=== PATIENT | male | born 1960 | race Caucasian/White ===

== ENCOUNTER 2020-05-10 09:45 | Outpatient (CLI) | payer MEDICARE, SELFPAY ==
--- NOTE | ~2020-05-10 | XR_ITS ---
XR chest 2V 05/10/2020 10:30 Indication: Dyspnea, shortness of breath and cough Procedure: PA and lateral views of the chest Comparison: 05/28/2012 Findings: Heart size normal. There is chronic left basilar atelectasis/scarring. There is a coronary artery stent. Right lung clear. No pleural effusion, edema or pneumothorax. Impression: 1: Chronic left basilar atelectasis/scarring. Reviewed, dictated and finalized at location A. Impression: 1: Chronic left basilar atelectasis/scarring.
== END 2020-05-10 09:46 | disposition home or self-care (01) ==
PROVIDERS: PCP Family Medicine; Visit Provider Family Medicine
DX: R06.00 Dyspnea, unspecified (principal)
CPT/HCPCS: 71046

== ENCOUNTER 2020-05-22 16:01 | Emergency (ER) | payer MEDICARE, SELFPAY ==
--- NOTE | ~2020-05-22 | XR_ITS ---
EXAMINATION: XR chest 2V DATE: 05/22/2020 16:48 INDICATION: Cough and fever TECHNIQUE: frontal and lateral views of the chest were obtained. COMPARISON: Chest radiograph dated 05/10/2020 and 08/31/2019 FINDINGS: Linear opacities in the lingula, right middle lobe and in one of the lower lobes on the lateral proje ction consistent with discoid atelectasis. No other airspace opacities, pulmonary edema, pleural effu milli or pneumothorax. The cardiomediastinal silhouette is normal. There are bridging osteophytes at m ultiple levels in the spine, consistent with diffuse idiopathic skeletal hyperostosis (DISH). Atheros clerotic aorta. 10 mm right renal stone. IMPRESSION: 1. Mild linear opacities in the bilateral lower lung zones and favor atelectasis over pneumonia. 2. Right nephrolithiasis. Reviewed, dictated and finalized at location A. IMPRESSION: 1. Mild linear opacities in the bilateral lower lung zones and favor atelectasi s over pneumonia. 2. Right nephrolithiasis.
[2020-05-22 16:16] VITALS: BP 165/93; PULSE 106; RESP 24; TEMP 39.2; O2SAT 97
--- NOTE | 2020-05-22 16:19 | ED.FEVER ---
HPI - Fever General Chief Complaint: Fever Stated Complaint: Fever cough Time Seen by Provider: 05/22/20 16:19 Source: patient Mode of arrival: ambulatory Limitations: no limitations History of Present Illness HPI Narrative: 60-year-old man comes in today complaining of a cough for the last 3 weeks and fever for the last 2 days. He states that he has some mild shortness of breath with bending over but none with exertion. His cough is nonproductive. His temperature was a 101.5? yesterday and 102.5 today. Approximately 2 weeks ago he was in [place] for a beach vacation. He has no sick exposures, is not a smoker, and has no history of lung disease. MD elicited complaint: fever and malaise Pertinent past history: diabetes Onset (ago): week(s) (3) Context: recent travel Exacerbating factors: nothing Associated symptoms: myalgias and shortness of breath (when bending over) Treatments prior to arrival fever: acetaminophen Related Data Home Medications Medication Instructions Recorded Confirmed atorvastatin 40 mg PO DAILY 05/22/20 05/22/20 carvedilol 6.25 mg PO DAILY 05/22/20 05/22/20 clopidogrel 75 mg PO DAILY 05/22/20 05/22/20 glimepiride 1 mg PO DAILY 05/22/20 05/22/20 lisinopril-hydrochlorothiazide 1 tablet PO DAILY 05/22/20 05/22/20 metformin 1,000 mg PO BID 05/22/20 05/22/20 pioglitazone 30 mg PO DAILY 05/22/20 05/22/20 Allergies Allergy/AdvReac Type Severity Reaction Status Date / Time No Known Allergies Allergy Unverified 02/25/17 15:34 Review of Systems Constitutional: Constitutional: Reports fatigue and Reports fever(s) Eyes: Eyes: Denies change in vision and Denies photophobia ENT: Denies dysphagia, Denies nasal congestion and Denies sore throat Cardiovascular: Cardiovascular: Denies chest pain and Denies radiating jaw, neck or arm pain Respiratory: Respiratory: Reports cough, Denies dyspnea and Denies wheezing Gastrointestinal: Gastrointestinal: Denies abdominal pain, Denies diarrhea, Denies nausea and Denies vomiting Genitourinary: Genitourinary: Denies hematuria, Denies dysuria and Denies urinary frequency Musculoskeletal: Musculoskeletal: Denies back pain, Reports myalgias, Denies arthralgias and Denies joint swelling Integumentary/Breasts: Skin/Breast: Denies pruritus, Denies erythema and Denies rash Neurologic: Denies vertigo, Denies dizziness and Denies syncope Psychiatric: Psychiatric: Denies anxiety and Denies depression Endocrine: Endocrine: Denies polydipsia and Denies polyuria Hematologic/Lymphatic: Hematologic/Lymphatic: Denies easy bleeding and Denies easy bruising Allergic/Immunologic: Allergic/Immunologic: Denies lip swelling and Denies wheezing PMFSH Past Medical History Medical History CAD (coronary artery disease) Colonic mass Dyslipidemia Hypertension T2DM (type 2 diabetes mellitus) Surgical History Surgical History H/O colectomy H/O heart artery stent Social History Social History Smoking status: Never smoker Alcohol intake: never Substance use: never Living arrangements: with family Exam Const: General: healthy appearing and alert Orientation/consciousness: patient oriented x3 Limitations: no limitations Other: Mild acute distress HENMT: Head: normal to inspection Ears: external ears normal, TM's normal bilaterally and EAC's normal Mouth: Yes Normal oral and palatal mucosa present and Yes moist mucous membranes Throat: posterior oropharynx normal and uvula midline Eyes: Conjunctivae: conjunctivae normal Pupils: Equal, round and reactive pupils present EOM: EOMs intact bilaterally Resp: Effort & Inspection: normal respiratory effort and not labored Auscultation: clear to auscultation bilaterally, no rales, no rhonchi and no wheezes Cardio: Rate: tachycardic Rhythm: regular rhyt
--- NOTE | 2020-05-22 16:28 | ECG_ITS ---
Measurements Intervals [place] Rate: P: AR: QRS: QRSD: T: QT: QTc: Interpretive Statements SINUS TACHYCARDIA INFERIOR INFARCT, AGE INDETERMINATE BORDERLINE T WAVE ABNORMALITY- ANTERIOR LEADS ABNORMAL ECG Electronically Signed On 05-23-2020 11:27:04 CDT by Richie Isabel D.O.
[2020-05-22] MEDS: SODIUM CHLORIDE 0.9% IV 1,000 ML 999 ML IV CONT (16:50)
[2020-05-22 17:23] LABS: Basophils Absolute Auto 0.04 K/mm3 (0.00-0.10); Basophils Percent Auto 0.9 % (0.0-1.0); Eosinophils Percent Auto 2.2 % (1.0-6.0); Hematocrit 41.1 % (40.0-54.0); Hemoglobin 12.9 g/dL (14.0-18.0); Immature Granulocyte Absolute 0.02 K/mm3 (0.00-0.00); Immature Granulocyte Percent A 0.4 % (0.0-0.0); Lymphocytes Absolute Auto 0.42 K/mm3 (1.10-4.50); Lymphocytes Percent Auto 9.2 % (18.0-42.0); Mean Corpuscular HGB Conc 31.4 g/dL (32.0-36.0); Mean Corpuscular Hemoglobin 27.1 pg (27.0-31.0); Mean Corpuscular Volume 86.3 fL (78.0-102.0); Mean Platelet Volume 9.6 fl (8.7-11.0); Monocytes Absolute Auto 0.67 K/mm3 (0.10-0.90); Monocytes Percent Auto 14.7 % (2.0-11.0); Neutrophils Absolute Auto 3.3 K/mm3 (1.7-7.2); Neutrophils Percent Auto 72.6 % (50.0-70.0); Platelet Count Result 183 K/mm3 (150-420); Red Blood Count 4.76 M/mm3 (4.70-6.10); Red Cell Distribution Width 13.1 % (11.6-14.4); White Blood Count 4.6 K/mm3 (4.8-10.8)
[2020-05-22 17:25] LABS: Add Urine Microscopic? YES; Appearance Urine Clear (Clear); Bilirubin Urine Negative (Negative); Blood Urine Negative (Negative); Color Urine Yellow (Yellow); Glucose Urine UA Negative (Negative); Ketones Urine Negative (Negative); Leukocyte Esterase Ur Negative LEU/UL (Negative); Nitrate Urine Negative (Negative); Protein Urine Trace (Negative); Specific Grav Ur >= 1.030 (1.010-1.020); Urobilinogen Urine 0.2 mg/dL (0.2-1.0); pH Urine 5.5 (5.0-8.0)
[2020-05-22 17:33] LABS: Bacteria Urine Trace /hpf; RBC Urine 0-2 /hpf (0-2); WBC Urine None seen /hpf (0-3)
[2020-05-22 17:34] LABS: Mucus Urine Moderate /lpf; Squamous Epithelial Cell Urine Rare /hpf (Few)
[2020-05-22 17:36] VITALS: BP 155/89; PULSE 99; RESP 18; O2SAT 96
[2020-05-22 17:39] LABS: Alanine Aminotransferase 57 U/L (16-63); Albumin Level 3.6 g/dL (3.4-5.0); Alkaline Phosphatase 58 U/L (46-116); Anion Gap 15.6 mmol/L (7-16); Aspartate Amino Transferase 64 U/L (15-37); Bilirubin,Total 0.5 mg/dL (0.00-1.00); Blood Urea Nitrogen 16 mg/dL (7-18); CRP 0.5 mg/dL (0.0-0.9); Calcium 8.6 mg/dL (8.5-10.1); Carbon Dioxide 28 mmol/L (21-32); Chloride 100 mmol/L (98-108); Estimated CRCL calculation 91 ml/min; Estimated Glomerular Filt Rate > 60; Glucose 133 mg/dL (70-99); INR 1.1; Osmolality Calculated 293 mOsm/kg (285-295); Partial Thromboplastin Time 30.1 SEC (22.3-31.6); Potassium 3.6 mmol/L (3.5-5.1); Prothrombin Time 11.1 Seconds (9.64-11.0); Sodium 140 mmol/L (136-145); Total Protein 7.7 g/dL (6.4-8.2)
[2020-05-22 17:43] LABS: Lactic Acid Reflex 1.9 mmol/L (0.4-2.0); Troponin I < 0.02 ng/mL (0.00-0.056)
[2020-05-22 17:46] LABS: Influenza Control Valid (Valid)
[2020-05-22 17:55] VITALS: TEMP 37.7
[2020-05-22] MEDS: DOXYCYCLINE HYCLATE 100 MG TABLET PO (18:05)
[2020-05-22 18:15] VITALS: RESP 18; O2SAT 96
[2020-05-23 11:01] LABS: SARS-CoV-2 RNA PCR Negative
== END 2020-05-22 18:15 | disposition home or self-care (01) ==
PROVIDERS: Emergency Provider Emergency Medicine; PCP Family Medicine
DX: J20.9 Acute bronchitis, unspecified (principal); I25.10 Atherosclerotic heart disease of native coronary artery without angina pectoris; E78.5 Hyperlipidemia, unspecified; I10 Essential (primary) hypertension; E11.9 Type 2 diabetes mellitus without complications; Z79.899 Other long term (current) drug therapy
CPT/HCPCS: 36415; 71046; 80053; 81001; 83605; 84484; 85025; 85610; 85730; 86140; 87040; 87635; 87804; 93005; 96360; 99283; 99284; A9270; C9803; J7030; U0003

== ENCOUNTER 2020-05-24 12:38 | Emergency (ER) | payer MEDICARE, SELFPAY ==
--- NOTE | ~2020-05-24 | CT_ITS ---
EXAMINATION: CTA chest PE protocol EXAM DATE: 05/24/2020 15:10 INDICATION: Fever, elevated d-dimer. TECHNIQUE: Spiral CTA of the chest (pulmonary arteries) was performed with 100 cc Omnipaque 350 intr avenous contrast injection. Images were acquired during the pulmonary arterial phase. Coronal maxi mum intensity projection 3D-reconstructions were created by the technologist on dedicated workstation . Axial, coronal and sagittal reformatted images were reviewed. The dose-length product (DLP) for t his examination was 924.03 mGy-cm. The exposure was tailored according to patient size (auto mA exp osure control), and iterative reconstruction (ASIR) was used as additional dose reduction technique. There is no prior study for comparison. Correlation was made with chest x-ray 05/22/2020. FINDINGS: Pulmonary arteries are well opacified and without intraluminal filling defects. No thora cic aortic dissection. Right upper lobe linear subsegmental atelectasis. There are no pleural or pe ricardial effusions. Tracheobronchial tree is patent. There is no mediastinal, hilar or axillary lymphadenopathy. There is no pneumothorax. Heart normal in size. There is moderate coronary art erial calcification, arterial sclerosis. Upper abdomen is unremarkable. Patient has diffuse idiopa thic skeletal hyperostosis (DISH). IMPRESSION: 1. Linear right upper lobe subsegmental atelectasis. 2. No pulmonary emboli. Reviewed, dictated and finalized at location B.
[2020-05-24 12:40] VITALS: BP 153/75; PULSE 106; RESP 19; TEMP 36.1; O2SAT 98
--- NOTE | 2020-05-24 13:22 | ECG_ITS ---
Measurements Intervals [place] Rate: 100 P: 13 LA: 152 QRS: -24 QRSD: 103 T: 32 QT: 342 QTc: 442 Interpretive Statements SINUS TACHYCARDIA DELAYED PRECORDIAL R/S TRANSITION INFERIOR INFARCT, AGE INDETERMINATE BORDERLINE T WAVE ABNORMALITY- ANTERIOR LEADS ABNORMAL ECG Electronically Signed On 05-24-2020 15:02:45 CDT by Richie Isabel D.O.
--- NOTE | 2020-05-24 13:39 | ED.FEVER ---
HPI - Fever General Chief Complaint: Fever Stated Complaint: wants COVID testing Time Seen by Provider: 05/24/20 12:57 Source: patient Mode of arrival: ambulatory Limitations: no limitations History of Present Illness HPI Narrative: This patient is a 60 year old male with history of DM and heart disease who presents for evaluation of COVID. He states he has had nonproductive cough for 3 weeks. He states his cough has continue to get worse and he is having difficulty sleeping due to coughing so much. He also developed intermittent fever over the past 2 weeks. Just prior to arrival today he had a fever 102, and he took 800 mg of ibuprofen. He was evaluated at [place] [facility] 2 days ago for his symptoms. He was tested for COVID and his results came back negative yesterday. He has come to [facility] for a repeat COVID test. He also reports shortness of breath. Related Data Home Medications Medication Instructions Recorded Confirmed atorvastatin 40 mg PO DAILY 05/22/20 05/22/20 carvedilol 6.25 mg PO DAILY 05/22/20 05/22/20 clopidogrel 75 mg PO DAILY 05/22/20 05/22/20 glimepiride 1 mg PO DAILY 05/22/20 05/22/20 lisinopril-hydrochlorothiazide 1 tablet PO DAILY 05/22/20 05/22/20 metformin 1,000 mg PO BID 05/22/20 05/22/20 pioglitazone 30 mg PO DAILY 05/22/20 05/22/20 Allergies Allergy/AdvReac Type Severity Reaction Status Date / Time No Known Allergies Allergy Verified 05/24/20 12:44 Review of Systems Review of Systems: All systems reviewed & are unremarkable except as noted in HPI and below Constitutional: Constitutional: Reports chills, Reports fatigue and Reports fever(s) Respiratory: Respiratory: Reports cough and Reports dyspnea Gastrointestinal: Gastrointestinal: Denies abdominal pain, Denies diarrhea, Reports nausea and Denies vomiting Genitourinary: Genitourinary: Denies hematuria, Denies dysuria and Denies urinary frequency Musculoskeletal: Musculoskeletal: Denies back pain [facility] Past Medical History Medical History CAD (coronary artery disease) Colonic mass Dyslipidemia Hypertension T2DM (type 2 diabetes mellitus) Surgical History Surgical History H/O colectomy H/O heart artery stent Social History Social History Smoking status: Never smoker Alcohol intake: never Substance use: never Gender identity (if verbalized by the patient): Male Exam Narrative: Exam Narrative: GENERAL: Well-appearing, well-nourished, and in no acute distress. HEAD: Normocephalic, atraumatic EYES: PERRLA and EOMI, conjunctiva clear without discharge EARS: TM's clear bilaterally without erythema or dullness NOSE: Nares clear, no rhinorrhea or epistaxis THROAT:Mucous membranes moist, Oropharynx normal without erythema, exudate, peritonsillar swelling or fluctuance NECK: Supple, without lymphadenopathy or mass RESPIRATORY: No respiratory distress, Airway patent, Respirations non-labored, Clear to auscultation without rales, rhonchi or wheeze HEART: Regular rate and rhythm. No murmur heard. Normal peripheral pulses. ABDOMEN: Soft, nontender, nondistended, normal active bowel sounds. No masses. No rebound or guarding, No organomegaly. EXTREMITIES: No edema, normal strength with full range of motion. SKIN: Warm, dry, normal color without rash NEURO: Alert and oriented x3. CN 2-12 grossly intact. No focal deficits. PSYCH: Normal mood and affect. Course Reevaluation(s) Reevaluation #1: I have discussed with patient that symptoms suggest viral infection. He wants to be repeat tested for COVID. Date: 05/24/20 Time: 15:58 Vital Signs Vital signs: Vital Signs Temperature 97.0 F L 05/24/20 12:40 Pulse Rate 106 H 05/24/20 12:40 Respiratory Rate 19 05/24/20 12:40 Blood Pressure 153/75 H 05/24/20 12:40 Pulse Oximetry 98
[2020-05-24 13:44] VITALS: BP 133/84; PULSE 99; RESP 18; O2SAT 97
[2020-05-24 13:58] VITALS: RESP 22; O2SAT 97
[2020-05-24 14:03] LABS: Basophils Percent Auto 0.5 % (0.2-1.2); Eosinophils Percent Auto 0.5 % (0-4.4); Immature Granulocyte Absolute 0.04 K/mm3 (0.00-0.031); Immature Granulocyte Percent A 0.9 % (0-0.5); Lymphocytes Percent Auto 9.1 % (18.3-44.2); Mean Corpuscular HGB Conc 31.7 g/dl (32-36); Mean Corpuscular Hemoglobin 27.1 pg (26-34); Mean Corpuscular Volume 85.4 fl (80-100); Mean Platelet Volume 10.5 fl (7.4-10.4); Monocytes Absolute Auto 0.6 K/mm3 (0.1-0.6); Monocytes Percent Auto 14.1 % (2.6-8.5); Neutrophils Absolute Auto 3.3 K/mm3 (1.3-6.7); Neutrophils Percent Auto 74.9 % (45.5-73.1); Platelet Count Result 147 k/mm3 (150-375); Red Cell Distribution Width 13.5 % (11.5-14.5); White Blood Count 4.4 K/mm3 (4.5-10.0)
[2020-05-24 14:09] LABS: Add Urine Microscopic? YES; Appearance Urine Clear (Clear); Bilirubin Urine Negative (Negative); Blood Urine Negative (Negative); Color Urine Yellow (Yellow); Glucose Urine UA 1+ mg/dL (Negative); Ketones Urine Trace mg/dL (Negative); Leukocyte Esterase Ur Negative LEU/UL (Negative); Mucus Urine Few /lpf; Nitrate Urine Negative (Negative); Protein Urine 2+ mg/dL (Negative); RBC Urine 0-2 /hpf (0-2); Squamous Epithelial Cell Urine Rare /hpf (Few); Urobilinogen Urine Negative mg/dL (<2.0); WBC Urine 0-3 /hpf
[2020-05-24 14:11] LABS: Specific Grav Ur 1.039 (1.001-1.035)
[2020-05-24 14:17] LABS: Lactic Acid Reflex 1.9 mmol/L (0.7-2.1)
[2020-05-24 14:18] LABS: INR 1.1; Partial Thromboplastin Time 34.7 SECONDS (22.3-36.8); Prothrombin Time 13.5 Seconds (11.1-14.7)
[2020-05-24 14:19] LABS: Alanine Aminotransferase 46 U/L (4-50); Albumin Level 4.1 g/dL (3.5-5.1); Alkaline Phosphatase 67 U/L (38-126); Aspartate Amino Transferase 69 U/L (17-59); Bilirubin,Total 0.8 mg/dL (0.2-1.3); Blood Urea Nitrogen 17 mg/dL (9-20); CRP 7.3 mg/dL (<1.0); Calcium 8.7 mg/dL (8.4-10.2); Carbon Dioxide 23 mmol/L (22-30); Chloride 101 mmol/L (98-107); Estimated CRCL calculation 128 ml/min; Estimated Glomerular Filt Rate > 60; Glucose 200 mg/dL (75-110); Lactate Dehydrogenase 707 U/L (313-618); Potassium 3.6 mmol/L (3.4-5.0); Sodium 135 mmol/L (137-145)
[2020-05-24 14:21] LABS: D Dimer 1.45 ug/mL (<0.48)
[2020-05-24 14:47] VITALS: BP 133/70; PULSE 96; RESP 22; O2SAT 96
[2020-05-24 15:28] VITALS: BP 129/76; PULSE 95; RESP 18; O2SAT 97
[2020-05-24 16:21] VITALS: BP 133/84; PULSE 92; RESP 22; TEMP 37.6; O2SAT 97
[2020-05-25 13:02] LABS: SARS-CoV-2 RNA PCR Negative
== END 2020-05-24 16:22 | disposition home or self-care (01) ==
PROVIDERS: Emergency Provider General Practice; PCP Family Medicine
DX: R50.9 Fever, unspecified (principal); B34.9 Viral infection, unspecified; Z20.828 Contact with and (suspected) exposure to other viral communicable diseases; R00.0 Tachycardia, unspecified; I25.10 Atherosclerotic heart disease of native coronary artery without angina pectoris; E78.5 Hyperlipidemia, unspecified; I10 Essential (primary) hypertension; E11.9 Type 2 diabetes mellitus without complications; Z79.84 Long term (current) use of oral hypoglycemic drugs; Z95.5 Presence of coronary angioplasty implant and graft; R94.31 Abnormal electrocardiogram [ECG] [EKG]; R91.8 Other nonspecific abnormal finding of lung field
CPT/HCPCS: 36415; 71275; 80053; 81001; 83605; 83615; 85025; 85380; 85610; 85730; 86140; 87040; 87635; 93005; 99284; C9803; Q9967; U0003

== ENCOUNTER 2020-10-07 12:01 | Outpatient (CLI) | payer MEDICARE, SELFPAY ==
[2020-10-08 01:31] LABS: SARS-CoV-2 RNA PCR Negative
== END 2020-10-07 12:02 | disposition home or self-care (01) ==
LOC: CHSLAB 12:05
PROVIDERS: PCP Family Medicine; Visit Provider Family Medicine
DX: Z20.828 Contact with and (suspected) exposure to other viral communicable diseases (principal)
CPT/HCPCS: 87635; C9803; U0003

== ENCOUNTER 2020-10-26 10:33 | Outpatient (CLI) | payer MEDICARE, SELFPAY ==
--- NOTE | ~2020-10-26 | XR_ITS ---
EXAMINATION: XR lumbar spine 2-3V EXAM DATE: 10/26/2020 11:03 INDICATION: Pain in L hip, Lumbago with sciatica, left side. TECHNIQUE: Lumber spine frontal, lateral, lateral L5-S1 projections for interpretation. Comparison is made to prior examination from 12/01/2012. FINDINGS: There is moderate loss of the L4-5 disc height, mild disc disease at the other lumbar leve ls. Minimal chronic appearing loss of the T12 and L1 vertebral body heights. There is mild to moderat e lumbar facet arthropathy and aortic arteriosclerotic disease. The vertebral bodies are aligned in t he AP dimension. Sacrum, sacroiliac joints, sacral arcuate lines are intact. Bilateral nephrolithiasi s, larger on the right at about 1 cm. IMPRESSION: 1. L4-5 moderate disc disease, mild at the other lumbar levels. 2. Mild to moderate facet arthropathy. 3. Bilateral nephrolithiasis. Reviewed, dictated and finalized at location B. OR POLICY ASSOCIATE
--- NOTE | ~2020-10-26 | XR_ITS ---
XR hip LT min 2V 10/26/2020 11:03 Indication: Left hip pain Procedure: 2 views left hip Comparison: No prior studies for comparison. Findings: No acute fracture, subluxation or dislocation. No significant joint space narrowing. No sof t tissue abnormality. No radiopaque foreign bodies. Impression: 1: No significant bone or joint abnormality. Reviewed, dictated and finalized at location A. ING SYSTEM ADMINISTRATOR Impression: 1: No significant bone or joint abnormality.
== END 2020-10-26 10:34 | disposition home or self-care (01) ==
PROVIDERS: PCP Family Medicine; Visit Provider Family Medicine
DX: M25.552 Pain in left hip (principal); M54.42 Lumbago with sciatica, left side
CPT/HCPCS: 72100; 73502

== ENCOUNTER 2021-04-21 08:54 | Outpatient (CLI) | payer MEDICARE, SELFPAY ==
--- NOTE | ~2021-04-21 | US_ITS ---
EXAMINATION: US carotid duplex BI EXAM DATE: 04/21/2021 09:22 INDICATION: Dizziness and giddiness . TECHNIQUE: Grayscale, color and pulsed Doppler images of the cervical carotid arteries were obtained . The degree of vessel stenosis is placed in one of the following categories: normal, <50% stenosis, 50-69% stenosis, >=70% stenosis but less than near-occlusion, near-occlusion, or occlusion. Note that percent stenosis relative to normal distal artery lumen diameter is indirectly measured from velocit y measurements as described by Jack, et al. Radiology 2003; 229:340-346. There is no prior study fo r comparison. FINDINGS: RIGHT SIDE: Right common carotid artery peak systolic velocity (PSV in cm/s): 98 Right bulb/internal carotid artery peak systolic velocity (PSV in cm/s): 105 Right internal carotid artery end diastolic velocity (EDV in cm/s): 14 Right ICA/CCA peak systolic ratio: 1.1 Right external carotid artery peak systolic velocity (PSV in cm/s): 128 Right vertebral artery antegrade flow: yes There is minimal carotid bulb plaque. Velocity and Doppler waveforms in the common and internal carotid arteries is normal. LEFT SIDE: Left common carotid artery peak systolic velocity (PSV in cm/s): 100 Left bulb/internal carotid artery peak systolic velocity (PSV in cm/s): 97 Left internal carotid artery end diastolic velocity (EDV in cm/s): 11 Left ICA/CCA peak systolic ratio: 1.0 Left external carotid artery peak systolic velocity (PSV in cm/s): 100 Left vertebral artery antegrade flow: yes There is minimal carotid bulb plaque. Velocity and Doppler waveforms in the common and internal carotid arteries is normal. IMPRESSION: 1. Less than 50 percent stenosis in the right internal carotid artery. 2. Less than 50 percent stenosis in the left internal carotid artery. Reviewed, dictated and finalized at location A.
== END 2021-04-21 08:55 | disposition home or self-care (01) ==
LOC: CHSIMG 08:55
PROVIDERS: PCP Family Medicine; Visit Provider Family Medicine
DX: R42 Dizziness and giddiness (principal)
CPT/HCPCS: 93880

== ENCOUNTER 2021-08-02 08:40 | Outpatient (CLI) | payer MEDICARE, SELFPAY ==
[2021-08-02 13:25] LABS: SARS-CoV-2 Ag Negative (Negative)
== END 2021-08-02 08:41 | disposition home or self-care (01) ==
LOC: CHSLAB 08:41
PROVIDERS: PCP Family Medicine; Visit Provider Family Medicine
DX: Z20.822 Contact with and (suspected) exposure to COVID-19 (principal)
CPT/HCPCS: 87426; C9803

== ENCOUNTER 2021-08-31 10:13 | Outpatient (CLI) | payer MEDICARE, SELFPAY ==
[2021-08-31 10:32] LABS: SARS-CoV-2 Ag Negative (Negative)
== END 2021-08-31 10:14 | disposition home or self-care (01) ==
PROVIDERS: PCP Family Medicine; Visit Provider Family Medicine
DX: Z20.822 Contact with and (suspected) exposure to COVID-19 (principal)
CPT/HCPCS: 87426; C9803

== ENCOUNTER 2021-12-30 07:09 | Outpatient (CLI) | payer OTHER, SELFPAY ==
[2021-12-30 07:46] LABS: SARS-CoV-2 Ag Negative (Negative)
[2021-12-30 09:08] LABS: SARS-CoV-2 RNA PCR Negative (Negative)
== END 2021-12-30 07:10 | disposition home or self-care (01) ==
LOC: CHSLAB 07:13
PROVIDERS: PCP Family Medicine; Visit Provider Family Medicine
DX: R09.89 Other specified symptoms and signs involving the circulatory and respiratory systems (principal); Z20.822 Contact with and (suspected) exposure to COVID-19
CPT/HCPCS: 87426; C9803; U0003; U0005

== ENCOUNTER 2022-02-16 14:34 | Outpatient (CLI) | payer OTHER, SELFPAY ==
[2022-02-16 15:55] LABS: SARS-CoV-2 Ag Negative (Negative)
== END 2022-02-16 14:35 | disposition home or self-care (01) ==
LOC: CHSLAB 14:35
PROVIDERS: PCP Family Medicine; Visit Provider Family Medicine
DX: J06.9 Acute upper respiratory infection, unspecified (principal); Z20.822 Contact with and (suspected) exposure to COVID-19
CPT/HCPCS: 87426; C9803

== ENCOUNTER 2022-03-24 07:15 | Outpatient (CLI) | payer MEDICARE, SELFPAY ==
[2022-03-24 08:17] LABS: SARS-CoV-2 Ag Negative (Negative)
== END 2022-03-24 07:16 | disposition home or self-care (01) ==
LOC: CHSLAB 07:17
PROVIDERS: PCP Family Medicine; Visit Provider Family Medicine
DX: Z11.59 Encounter for screening for other viral diseases (principal); Z20.822 Contact with and (suspected) exposure to COVID-19
CPT/HCPCS: 87426; C9803

== ENCOUNTER 2022-08-07 08:19 | Outpatient (CLI) | payer MEDICARE, SELFPAY ==
--- NOTE | ~2022-08-07 | US_ITS ---
EXAMINATION: US arterial ankle brachial ind DATE: 08/07/2022 09:06 INDICATION: Absent pedal pulses. TECHNIQUE: Segmental pressures and plethysmographic and Doppler waveforms of the brachial and lower e xtremity arteries were obtained. COMPARISON: None. FINDINGS: Right and left brachial artery pressures of 171 mm Hg and 151 mm Hg, respectively, are concordant (no rmal difference <= 30 mmHg). The right ankle-brachial index (ANDREW) is 1.22 (normal >= 0.9-1.0). The right great toe-brachial index (TBI) is 0.57 (normal >= 0.65). Arterial Doppler waveforms are biphasic with brisk systolic upstrokes at both right posterior tibial and dorsalis pedis arteries. The left ANDREW is 1.26. The left TBI is 0.77. Arterial Doppler waveforms are biphasic with brisk systol ic upstrokes at both left posterior tibial and dorsalis pedis arteries. IMPRESSION: 1. Mild arterial occlusive disease to the right lower limb with normal ANDREW but mildly decreased right TBI. 2. No significant arterial occlusive disease to the left lower limb with normal left ANDREW and TBI. Reviewed, dictated and finalized at location A.
== END 2022-08-07 08:20 | disposition home or self-care (01) ==
PROVIDERS: PCP Family Medicine; Visit Provider Family Medicine
DX: R09.89 Other specified symptoms and signs involving the circulatory and respiratory systems (principal); I73.9 Peripheral vascular disease, unspecified
CPT/HCPCS: 93922

== ENCOUNTER 2022-08-13 14:03 | Outpatient (CLI) | payer MEDICARE, SELFPAY ==
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
== END 2022-08-13 14:04 | disposition home or self-care (01) ==
LOC: CHSIMG 14:05
PROVIDERS: PCP Family Medicine; Visit Provider Family Medicine
DX: R07.9 Chest pain, unspecified (principal)
CPT/HCPCS: 71046; 71100

== ENCOUNTER 2025-06-15 14:53 | Outpatient (CLI) | payer MEDICARE, SELFPAY | END 2025-06-15 14:54 | disposition home or self-care (01) | LOC: MICIMG 14:55 | PROVIDERS: PCP Family Medicine; Visit Provider Family Medicine | DX: M79.605 Pain in left leg (principal) | CPT/HCPCS: 73562 ==

== ENCOUNTER 2025-08-04 13:30 | Outpatient (CLI) | payer MEDICARE, SELFPAY ==
--- NOTE | ~2025-08-04 | MR_ITS ---
EXAMINATION: MR knee LT wo con DATE: 08/04/2025 14:04 INDICATION: Left knee pain TECHNIQUE: Magnetic resonance imaging (MRI) of the left knee was performed without intravenous contrast. Sequences included coronal PD-weighted FSE, coronal PD-weighted FS FSE, sagittal T2-weighted FSE, sagittal PD-weighted FS FSE and axial PD weighted fat saturated FSE. COMPARISON: None. FINDINGS: Medial compartment: Complex tear at the posterior horn and posterior body of the medial meniscus which includes a likely full-thickness radial tear near the posterior root. Articular cartilage is normal. Lateral compartment: Lateral meniscus is normal. Small partial-thickness chondral fissure along the posterior aspect lateral tibial plateau. Patellofemoral compartment: Partial-thickness chondral fissuring without degenerative subchondral changes at the patellar apical ridge and medial patellar facet. Partial-thickness chondral ulceration with extensive chondral surface regular date but without degenerative subchondral changes along the medial trochlea, trochlear groove and inferomedial aspect of the lateral trochlea. Ligaments and tendons: Anterior and posterior cruciate ligaments are normal. The medial collateral ligament and fibular collateral ligament complex are normal. The extensor mechanism is normal. The visualized medial and lateral hamstring tendons as well as the iliotibial band are normal. Fluid: Physiologic amount of fluid in the joint space. No loose osteochondral bodies identified. Osseous/other: There is marrow edema surrounding a low signal intensity trabecular fracture line underlying the central aspect of the medial tibial plateau. No evident discontinuity or abnormal angulation of the articular cortices. No pathologic marrow replacing process. IMPRESSION: 1. Complex medial meniscal tear including likely full-thickness radial tear near the posterior root. 2. Nondisplaced subarticular fracture line underlying the medial tibial plateau without evident compromise of the cortices. This could be due to either discrete impaction trauma or potentially a stress fracture related to altered weight distribution resulting from a complex medial meniscal tear. 3. Mild lateral and patellofemoral osteoarthritis with small region of moderate grade chondromalacia along the lateral tibial plateau and extensive moderate grade chondromalacia in the patellofemoral compartment. Reviewed, dictated and finalized at location A. IMPRESSION: 1. Complex medial meniscal tear including likely full-thickness radial tear shira r the posterior root. 2. Nondisplaced subarticular fracture line underlying the medial tibial plateau without evident compromise of the cortices. This could be due to either discre te impaction trauma or potentially a stress fracture related to altered weight distribution resulting from a complex medial meniscal tear. 3. Mild lateral and patellofemoral osteoarthritis with small region of moderate grade chondromalacia along the lateral tibial plateau and extensive moderate g rade chondromalacia in the patellofemoral compartment.
== END 2025-08-04 13:31 | disposition home or self-care (01) ==
LOC: MICIMG 13:31
PROVIDERS: PCP Family Medicine; Visit Provider Family Medicine
DX: S83.272A Complex tear of lateral meniscus, current injury, left knee, initial encounter (principal); S82.142A Displaced bicondylar fracture of left tibia, initial encounter for closed fracture; M17.12 Unilateral primary osteoarthritis, left knee; M94.262 Chondromalacia, left knee
CPT/HCPCS: 73721